=== PATIENT | female | born 1990 | race African-American/Black ===

== ENCOUNTER 2022-02-22 06:52 | Emergency (ER) | payer SELFPAY ==
[2022-02-22 07:11] VITALS: BP 140/80; PULSE 80; RESP 18; TEMP 37.1; O2SAT 97
[2022-02-22 07:17] LABS: Glucose Point of Care 93 mg/dl (65-105)
--- NOTE | 2022-02-22 07:24 | ED.FEMALEGU ---
HPI - Female Genitourinary General Chief complaint: Urogenital-Female Stated complaint: urogential Time Seen by Provider: 02/22/22 07:23 Source: patient Limitations: no limitations History of Present Illness HPI Narrative: 32 years old -[place] female came to the emergency room by private car complaining of that her urine smells sweet and dark this morning. She denies fever, chills, nausea, vomiting, burning urination or increased frequency of urination. When she arrived to the emergency room she urinated again and urine did not smell sweet and was not dark. Related Data Allergies Allergy/AdvReac Type Severity Reaction Status Date / Time No Known Allergies Allergy Verified 02/22/22 06:55 Review of Systems Review of Systems: All systems reviewed & are unremarkable except as noted in HPI and below Exam Narrative: General appearance: Well-developed, well-nourished Skin: Normal color Head: Normocephalic, nontraumatic Eyes: Clear conjunctiva ENT: Oropharynx normal, ears normal, nose normal Neck: Supple, nontender Chest and respiratory: Airway patent, no respiratory distress, no accessory muscle use Heart: Regular rate/rhythm Abdomen: Soft, nontender, no organomegaly, quiet bowel sounds Vascular: Normal peripheral pulses, normal capillary refill. Musculoskeletal: Normal range of motion, nontender back Neurologic: Alert and oriented ?3, ACCOUNTANT ASSISTANT is normal as tested, no gross motor deficit Course Vital Signs Vital signs: Vital Signs Temperature 37.1 C 02/22/22 07:11 Pulse Rate 80 02/22/22 07:11 Respiratory Rate 18 02/22/22 07:11 Blood Pressure 140/80 02/22/22 07:11 Pulse Oximetry 97 02/22/22 07:11 Oxygen Delivery Room Air 02/22/22 07:11 Temperature 37.1 C 02/22/22 07:11 Pulse Rate 80 02/22/22 07:11 Respiratory Rate 18 02/22/22 07:11 Blood Pressure 140/80 02/22/22 07:11 Pulse Oximetry 97 02/22/22 07:11 Oxygen Delivery Room Air 02/22/22 07:11 MDM - Female Genitourinary Lab Data Labs: Lab Results 02/22/22 02/22/22 Range/Units 07:14 07:21 POC Capillary Glucose 93 (65-105) mg/dl Urine Color Yellow (Yellow) Urine Appearance Clear (Clear) Urine pH 7.0 (5.0-9.0) Ur Specific [place] 1.019 (1.001-1.035) Urine Protein Negative (Negative) mg/dL Urine Glucose (UA) Negative (Negative) mg/dL Urine Ketones Negative (Negative) mg/dL Ur Blood (Man) Negative (Negative) Urine Nitrate Negative (Negative) Urine Bilirubin Negative (Negative) Urine Urobilinogen 2.0 H (<2.0) mg/dL Leukocyte Esterase Rfl 1+ H (Negative) REJI/UL Urine RBC 0-2 (0-2) /hpf Urine WBC 4-6 H /hpf Ur Squamous Epith Cells Moderate H (Few) /hpf Urine Mucus Rare /lpf Critical Care Time Critical Care Time Critical Care Time: No Discharge Plan Discharge Clinical Impression: Normal physical exam, Normal urinalysis Patient Disposition: Home, Self-Care Condition: Stable Instructions: Antibiotic Form Additional Instructions: Return if symptoms are worsening , call your family physician for appointment, take Tylenol as as needed for aches and pain, continue home medications. Normal physical exam on today's exam it was felt that x-ray/CAT scan are not needed and doing them will exposed you . to unnecessary radiation. However, if you develop any new symptoms including pain anywhere, numbness, weakness, nausea, vomiting, bleeding from anywhere or any other symptom, please return to ER for evaluation Follow-up/Referrals: Andrea Arcos MD [Physician] - 02/27/22 UNKNOWN,DOCTOR [Primary Care Provider] -
[2022-02-22 07:59] LABS: Add Urine Microscopic? YES; Appearance Urine Clear (Clear); Bilirubin Urine Negative (Negative); Blood Urine Negative (Negative); Color Urine Yellow (Yellow); Glucose Urine UA Negative (Negative); Ketones Urine Negative (Negative); Leukocyte Esterase Ur 1+ LEU/UL (Negative); Mucus Urine Rare /lpf; Nitrate Urine Negative (Negative); Protein Urine Negative (Negative); RBC Urine 0-2 /hpf (0-2); Specific Grav Ur 1.019 (1.001-1.035); Squamous Epithelial Cell Urine Moderate /hpf (Few)
== END 2022-02-22 08:45 | disposition home or self-care (01) ==
PROVIDERS: Emergency Provider Emergency Medicine
DX: Z04.89 Encounter for examination and observation for other specified reasons (principal)
CPT/HCPCS: 81001; 82948; 99283